=== PATIENT | female | born 1975 | race African-American/Black ===

== ENCOUNTER 2022-03-04 09:43 | Emergency (ER) | payer OTHER ==
[2022-03-04 10:08] VITALS: BP 131/80; PULSE 93; TEMP 99; BMI 28.2
[2022-03-04 11:43] LABS: ALBUMIN 4.4 g/dl (3.4-5.0); BILIRUBIN,TOTAL 1.1 mg/dl (0.2-1); CALCIUM 10.3 mg/dl (8.5-10); CREATININE 0.8 mg/dl (0.55-1.3); TOT PROT 7.5 g/dl (6.4-8.2)
[2022-03-04 11:44] LABS: HEMATOCRIT 26.2 % (32.4-45.2); HEMOGLOBIN 8.2 G/dL (10.7-15.3); MCH 20.7 pg (25.7-33.7); MCHC 31.1 g/dl (32.0-36.0); MEAN CELL VOLUME 66.4 fl (80-96); PLATELET COUNT 520.8 10^3/uL (134-434); RBC 3.95 10^6/uL (3.60-5.2); RDW 38.6 % (11.6-15.6); WHITE BLOOD COUNT 10.1 10^3/uL (4.0-10.8)
[2022-03-04 11:59] LABS: HCG,QUALITATIVE URINE Negative
[2022-03-04 12:35] LABS: ADD RBC MORPHOLOGY YES
[2022-03-04 12:45] LABS: EPITHELIAL CELLS MANY /hpf
[2022-03-04 13:00] LABS: ANISOCYTOSIS 2+
[2022-03-04 13:01] LABS: PLATELET ESTIMATE INCREASED
== END 2022-03-04 12:33 | disposition home or self-care (01) ==
LOC: FER 09:43
DX: D25.9 Leiomyoma of uterus, unspecified (principal); N93.9 Abnormal uterine and vaginal bleeding, unspecified
CPT/HCPCS: 36415; 76830-TC; 80053; 81003; 81015; 84703; 85025; 86850; 86900; 86901; 99284-25